=== PATIENT | male | born 1945 | race Caucasian/White ===

== ENCOUNTER 2017-09-15 15:57 | Emergency (ER) | payer OTHER ==
[~2017-09-15] VITALS: Ht 188 cm; Wt 103.4 kg
[~2017-09-15 15:57] MED LIST: ADVIL200 MG PO; ASCORBIC ACID100 MG PO; ASCORBIC ACID500 M3 PO; ASPIRIN81 M1 PO; CALCIUM 500 MG1 EAC1 PO; DAILY VITE1 EAC1 PO; FISH OIL 1,0001 EAC7 PO; FOLIC ACID1 MG PO; LIPITOR5 MG PO; LITE COAT ASPI325 M1 PO; LORTAB 5-325 M1 EACH PO; MEDROL DOSEPAK4 MG PO; PERCOCET 5/31 TABLET PO; PROTONIX40 MG PO; SKELAXIN800 MG PO; SUPER B COMP1 TABLET PO; VISINE15 ML BOTH EYES; VITAMIN B-1100 MG PO; VITAMIN E400 UNIT PO; ZOFRAN ODT4 MG PO; ZOFRAN4 MG PO
[2017-09-15 16:33] LABS: HEMATOCRIT 46.9 % (38.0-50.0); MCH 32.7 PG (29.0-34.0); MCHC 34.8 G/DL (30.0-36.0); MEAN PLAT.VOLUME 9.5 uM^3 (9.0-12.4); PLATELET COUNT 220 K/uL (156-360); RBC DIS.WIDTH-CV 13.7 % (11.8-14.6); RBC DIS.WIDTH-SD 46.8 % (39-53); RED BLOOD COUNT 4.99 M/uL (4.00-5.50); WHITE BLOOD COUNT 7.8 K/uL (4.1-10.2)
[2017-09-15 16:54] LABS: ANION GAP 7 MEQ/L (2-14); CHLORIDE 106 MEQ/L (99-109); POTASSIUM 4.4 MEQ/L (3.7-5.4); SAMPLE HEMOLYSIS CHECK 0; SAMPLE ICTERIC CHECK 0; SAMPLE LIPEMIA CHECK 0; SODIUM 141 MEQ/L (136-147); TOTAL BILIRUBIN 0.8 MG/DL (0.0-1.0)
[2017-09-15 17:00] LABS: ALKALINE PHOSPHATASE 40 IU/L (3-129); GFR ESTIMATE (CALCULATED) > 59 mL/min/ (58.99-99999); GLUCOSE 90 mg/dL (70-99); LIPASE 95 U/L (1.0-51.0); UREA NITROGEN (BUN) 12 mg/dL (9-23)
[2017-09-15 21:34] LABS: ADD MIUA? NO; BILIRUBIN NEGATIVE; BLOOD NEGATIVE; COLOR YELLOW ((YELLOW)); GLUCOSE (STRIP) NEGATIVE; KETONES NEGATIVE; LEUKOCYTES NEGATIVE; NITRITE NEGATIVE; PROTEIN (STRIP) NEGATIVE; SPECIFIC GRAVITY 1.013 (1.000-1.030); UROBILINOGEN 0.2 MG/DL (0.2-1.0)
[2017-09-15] MEDS ORDERED: PERCOCET 5/31 TABLET PO (21:57)
[2017-09-15 22:12] VITALS: BP 120/88
== END 2017-09-15 22:28 | disposition home or self-care (01) ==
LOC: EME 15:57
PROVIDERS: Nurse Practitioner Family
DX: K85.90 Acute pancreatitis without necrosis or infection, unspecified (principal); R10.30 Lower abdominal pain, unspecified; R51 Headache; M43.6 Torticollis; R19.5 Other fecal abnormalities; Z90.49 Acquired absence of other specified parts of digestive tract; I48.91 Unspecified atrial fibrillation; I10 Essential (primary) hypertension; E78.5 Hyperlipidemia, unspecified; Z79.82 Long term (current) use of aspirin; Z87.891 Personal history of nicotine dependence
CPT/HCPCS: 74176; 80053; 81003; 83690; 85027; 93005

== ENCOUNTER 2018-05-01 12:37 | Observation (INO) | payer OTHER ==
[~2018-05-01] VITALS: Ht 188 cm; Wt 102.0 kg
[~2018-05-01 12:37] MED LIST changes: +B COMPLEX #11 EACH PO; +REFRESH TEARS15 ML BOTH EYES; -SUPER B COMP1 TABLET PO; -VISINE15 ML BOTH EYES
[2018-05-01 13:35] LABS: HEMATOCRIT 42.9 % (38.0-50.0); MCH 32.5 PG (29.0-34.0); MCV 92.9 FL (86-99); PLATELET COUNT 229 K/uL (156-360); RBC DIS.WIDTH-SD 44.1 % (39-53); RED BLOOD COUNT 4.62 M/uL (4.00-5.50); WHITE BLOOD COUNT 6.3 K/uL (4.1-10.2)
[2018-05-01 13:56] LABS: CHLORIDE 105 MEQ/L (99-109); POTASSIUM 4.3 MEQ/L (3.7-5.4); SODIUM 139 MEQ/L (136-147)
[2018-05-01 14:01] LABS: CREATININE 1.1 MG/DL (0.6-1.3); GFR ESTIMATE (CALCULATED) > 59 mL/min/ (58.99-99999); GLUCOSE 124 mg/dL (70-99); TROP-I INTERPRETATION NEGATIVE; TROPONIN-I < 0.01 ng/mL (0.0-0.30); UREA NITROGEN (BUN) 17 mg/dL (9-23)
[2018-05-01 14:31] LABS: ALBUMIN 4.3 G/DL (3.2-4.8); DIRECT BILIRUBIN 0.2 mg/dL (0.0-0.3); TOTAL BILIRUBIN 0.9 MG/DL (0.0-1.0)
[2018-05-01 14:36] LABS: ALKALINE PHOSPHATASE 37 IU/L (3-129); ALT (GPT) 24 IU/L (3-49); AST (GOT) 22 IU/L (2-34); LIPASE 20 U/L (1.0-51.0); TOTAL PROTEIN 6.7 G/DL (6.4-8.3)
[2018-05-01] MEDS ORDERED: TYLENOL ARTHRI650 MG PO (16:52)
[2018-05-01] MEDS ORDERED: CO Q-10100 MG PO (16:53)
[2018-05-01] MEDS ORDERED: VITAMIN D31000 UNIT PO (16:53)
[2018-05-01] MEDS ORDERED: SAM-E200 MG PO (16:53)
[2018-05-01 18:18] VITALS: BP 159/52
[2018-05-01 20:07] VITALS: BP 119/69
[2018-05-01 20:31] LABS: TROP-I INTERPRETATION NEGATIVE; TROPONIN-I < 0.01 ng/mL (0.0-0.30)
[2018-05-02 00:18] VITALS: BP 114/55
[2018-05-02 01:53] LABS: TROP-I INTERPRETATION NEGATIVE; TROPONIN-I < 0.01 ng/mL (0.0-0.30)
[2018-05-02 04:10] VITALS: BP 111/55
[2018-05-02 07:34] VITALS: BP 112/74
[2018-05-02 09:13] LABS: TROP-I INTERPRETATION NEGATIVE; TROPONIN-I < 0.01 ng/mL (0.0-0.30)
[2018-05-02 12:12] VITALS: BP 138/78
[2018-05-02] MEDS ORDERED: ANTIVERT12.5 MG PO (12:25)
== END 2018-05-02 14:01 | disposition home or self-care (01) ==
LOC: EME 12:37 → ENRESERV 16:24 → EDOF 17:20 → 4SOUTH 17:20 → ENRESERV 17:36 → 4SOUTH 17:59 → CANRESERV 18:04 → 4SOUTH 05-02 14:01
PROVIDERS: Hospitalist
DX: H81.10 Benign paroxysmal vertigo, unspecified ear (principal); R94.31 Abnormal electrocardiogram [ECG] [EKG]; I48.2 Chronic atrial fibrillation; E78.5 Hyperlipidemia, unspecified; H53.8 Other visual disturbances; R53.83 Other fatigue; Z79.82 Long term (current) use of aspirin; N40.0 Benign prostatic hyperplasia without lower urinary tract symptoms; Z86.19 Personal history of other infectious and parasitic diseases; Z98.890 Other specified postprocedural states; Z86.79 Personal history of other diseases of the circulatory system; Z87.891 Personal history of nicotine dependence; Z90.49 Acquired absence of other specified parts of digestive tract; Z82.3 Family history of stroke
CPT/HCPCS: 70450; 70496; 70498; 70551; 71046; 80048; 80076; 81003; 83690; 84484; 85027; 93005; 99281; 99284; G0378; J1650; J7030